=== PATIENT | male | born 1970 | race Caucasian/White ===

== ENCOUNTER 2018-03-07 18:17 | Emergency (ER) | payer BC ==
[2018-03-07 18:28] VITALS: BP 148/91; PULSE 72; RESP 18; TEMP 98.4; O2SAT 95
[2018-03-07] MEDS ORDERED: KETOROLAC TROMETHAMINE 30 MG/ML SOL IM ONE (19:22)
[2018-03-07] MEDS ORDERED: KETOROLAC TROMETHAMINE 30 MG/ML SOL ONE (19:39)
== END 2018-03-07 19:52 | disposition home or self-care (01) ==
LOC: ED 18:17
DX: M54.6 Pain in thoracic spine (principal); M62.830 Muscle spasm of back
CPT/HCPCS: 96372; 99282; 99283; J1885